=== PATIENT | female | born 1995 | race Caucasian/White ===

== ENCOUNTER 2018-02-27 16:25 | Emergency (ER) | payer OTHER | END 2018-02-27 20:30 | disposition home or self-care (01) | LOC: FTE 16:25 | DX: S99.911A Unspecified injury of right ankle, initial encounter (principal); X58.XXXA Exposure to other specified factors, initial encounter; Y92.9 Unspecified place or not applicable | CPT/HCPCS: 73610; 73610-RT; 99283-25 ==

== ENCOUNTER 2018-03-11 22:43 | Emergency (ER) | payer OTHER ==
[2018-03-12] MEDS: ACETAMINOPHEN 500 MG TAB PO (00:53)
== END 2018-03-12 02:44 | disposition home or self-care (01) ==
LOC: FTE 22:43
DX: R51 Headache (principal)
CPT/HCPCS: 70450; 99284-25